=== PATIENT | female | born 1960 | race Caucasian/White ===

== ENCOUNTER 2025-06-17 13:45 | Outpatient (AMB) | payer MEDICARE, MEDICAID, SELFPAY ==
--- OUTSIDE RECORDS SUMMARY | 2022-11-17 07:00 | XMS_ITS | Continuity of Care Document ---
Author Organization [facility] Address [address] [place] [address] Phone Care Team Providers Care Roll Builder Name Role Phone No Information Unavailable Unavailable Allergies, Adverse Reactions, Alerts Substance Reaction Status Criticality No Known Allergies Active No Inform ation Medications Medication Instructions Dosage Effective Dates (start - stop) Status Comments Golytely 236 gram-22.74 gram-6.74 gram-5.86 gram oral solution Take as directed. - Active hydrocortisone 2.5 % topical cream with perineal applicator apply by topical route 2- 4 times every day a thin layer to the affected area(s) 0.00 - Active Golytely 236 gram-22.74 gram-6.74 gram-5.86 gram oral solution take as directed - Active lisinopril 40 mg tablet take 1 tablet by oral route every day 40 MG - Active Prilosec OTC 20 mg tablet,delayed release take 1 tablet by buccal route every day for 90 days 1 tablet - Active rosuvastatin 10 mg tablet take 1 tablet by oral route every day 10 MG - Active Procedures Procedure Date TISSUE EXAM BY PATHOLOGIST COLONOSCOPY AND BIOPSY UPPER GI ENDOSCOPY, BIOPSY OFFICE/OUTPATIENT VISIT, EST OFFICE/OUTPATIENT VISIT, NEW OFFICE/OUTPATIENT VISIT, NEW Advance Directives Directive Yes / No Effective Date File Name No Information Encounters Encounter Description Practice Location Reason(s) For Visit Diagnoses Date Provider Providers Copied on Encounter [facility], [address] [place], [address] [place] [address], tel:[phone] [facility] No Information Apr-2 3 No Information [facility], [address], [place], [place], [address] [place] [address], tel:[phone] Main Office Neoplasm of unsp behavior of bone, soft tissue, and skin Apr-2 3 Matteo Andrews. [address], [facility], . tel:[phone] Referring Provider: Milind Hurtado, [address], [place], [facility]. tel:[phone] [facility], [address] [place], [place], [address] [place] [address], tel:[phone] [facility] Benign neoplasm of cecumDvrtclos of lg int w/o perforation or abscess w/o bleedingBenig n neoplasm of sigmoid colonFirst degree hemorrhoidsGe neralized abdominal painEncounter for screening for malignant neoplasm of colonGastriti s, unspecified, without bleedingRight upper quadrant abdominal tendernessGas tro-esophagea l reflux disease with esophagitis, without bleeding Apr-2 3 [place]to [place]az. [address] [place] [facility], . tel:[phone] Referring Provider: Milind Hurtado, [address], [place], [facility]. tel:[phone] [facility], [address] [place], [place], [address] [place] [address], tel:[phone] Main Office No Information Apr-0 3 Gilberto Vaz. [address], [place], [facility], [place]. tel:[phone] OFFICE/OUTPA TIENT VISIT, EST [facility], [address], [place], [address] [place] [address], tel:[phone] Main Office Colon cancer screening (chief complaint)A bdominal pain (chief complaint) Gastro-esopha geal reflux disease without esophagitisEn counter for screening for malignant neoplasm of colonEpigastr ic painLeft upper quadrant painUnspecifi ed hemorrhoids Apr-0 4-202 3 Roseanna Drake. [address] [place], [facility], . tel:[phone] Referring Provider: Reynaldo Sotelo, [address], [place], [facility]. tel:[phone] [facility], [address], [address] [place] [address], tel:[phone] Main Office No Information 2 Juan Schmidhakar. [address], [place], [facility] [place], [place]. tel:[phone] OFFICE/OUTPA TIENT VISIT, [facility], [address] [place] [address], [address] [place] [address], tel:[phone] [place] GERD (chief complaint)C olon cancer screening (chief complaint) Gastro-esopha geal reflux disease without esophagitisEn counter for screening for malignant neoplasm of colonDysphagi a, unspecified 2 Gilberto Vaz. [address] , [place], [facility], . tel:[phone] Referring Provider: Chris Abdi, [address] [place] [address] In [facility], [place], [facility]. tel:[phone] OFFICE/OUTPA TIENT VISIT, [facility], [address], [address] [place] [address], tel:[phone] [facility] Colon cancer screening (chief complaint)p erianal irritation (chief complaint)D yspepsia (chief complaint) Special screening for malignant neoplasms, colonDyspepsi a 4 Gilberto Vaz. [address] [place], [facility], . tel:[phone] Family History Family Member Type Diagnosis Age At Onset Problem Family history o f malignant neoplasm of breast in first degree relative Payers Payer name Insurance type Covered constitution party ID Authorsusana garrett(s) [employer] Plans [id number] Social History Type Description Quantity Date Captured Comments Sex Female Smoking Status No Information Chief Complaint And Reason For Visit No Information Reason For Referral Reason For Referral No Information History Of Present Illness Encounter Date Complaint History Of Prese nt Illness Abdominal pain Comments: Report s h/o severe scoliosis with subsequent left flank pain radiating to the LUQ/Epigastric area. Requesting Abd US to check her organs. Also reports occ reflux; takes H2 berna PRN. Colon cancer screening Pertinent negatives include abdominal pain and weight loss. Comments: Last c olonoscopy with Dr. Austin. Received notice last year stating she was due for surveillance. Does report anorectal discomfort; attributes symptoms to hemorrhoids and anal fissures. OTC hemorrhoidal creams significantly help. GERD Additional infor mation: Has been on PPI for reflux for years. Has breakthrough symptoms at night despite PPI. Will have regurgitation and aspirate. Also has post-nasal drip, coughing fits. Takes ACEi. Colon cancer screening Additiona l information: Last COL was w Dr. Austin and she recently received notice she was due for routine COL. Functional Status Date Functional Assessmen t No Information Instructions Date Instruction Additional Infor mation No Information Assessments Type Assessment Date No Information Patient Care Teams Name Effective Dates (start - stop) Status Members No Information
--- OUTSIDE RECORDS SUMMARY | 2025-06-12 23:59 | XMS_ITS | Continuity of Care Document ---
Author Organization [facility] [place] Address [address] [place] [address]- Care Team Providers Care Host And Hostess Name Role Phone Fine FURNIT[employer] PACKER, Dustin Varghese Primary Care Physician ( [phone] Encounter [facility] Date(s): 05/13/25 - 06/12/25 [facility] [address] [place] [address]- Encounter Type: Triage Allergies, Adverse Reactions, Alerts Substance Criticality Severity Reaction Reaction Severity Status Adhesive Bandage Act blade Immunizations Given and Recorded Vaccine Date Status Refusal Reason [id number] bivalent booster vax 05/20/22 Recorded influenza virus vaccine, inactivated 05/03/22 Fazal rded influenza virus vaccine, inactivated 04/14/18 Fazal rded Medications Biotin See Instructions, By Mouth Daily, 0 Refills, Maintenance, 05/14/25 1:04:00 PM EDT, Partial fill upon patient request if the prescription is for a schedule II opioid drug. Start Date: 05/14/25 Status: Ordered Medication Dispense Status: Completed Total Allowed Fills: 1 Fills Dispensed: 0 DilTIAZem (Eqv-Tiazac) 120 mg/24 hours oral capsule, extended release 1 capsule = 120 mg, By Mouth, Daily, # 90 capsule, 3 Refills, Maintenance, 05/14/25 1:20:00 PM EDT,[facility] # [facility], Partial fill upon patient request if the prescription is for a schedule II opioid drug., 175, cm, 05/14/25 13:05:00 EDT, Height, 100.7, kg, 01/04/25 22:42:00 EDT, Dry Weight Start Date: 05/14/25 Status: Ordered Medication Dispense Status: Completed Quantity: 90.0 Unit: capsule Total Allowed Fills: 4 Fills Dispensed: 0 famotidine 20 mg oral tablet 1, tablet, By Mouth, 2 times a day, # 60 tablet, Refills 5, Maintenance, 03/14/25 1:11:00 PM EDT, Route to Pharmacy Electronically, [facility], 175, cm, 01/14/25 14:21:00 EDT, Height, 100.7, kg, 01/04/25 22:42:00 EDT, Dry Weight Start Date: 03/14/25 Status: Ordered Medication Dispense Status: Completed Quantity: 60.0 Unit: tablet Total Allowed Fills: 1 Fills Dispensed: 0 losartan 25 mg oral tablet 25 mg, 1, tablet, By Mouth, Daily, # 90 tablet, Refills 3, Tot. Refills 3, Maintenance, 04/23/25 12:39:00 PM EDT, Route to Pharmacy Electronically, [facility], Partial fill upon patient request if the prescription is for a schedule II opioid drug., 175, cm, 04/23/25 12:20:00 EDT, Height, 100.7, kg, 01/04/25 22:42:00 EDT, Dry Weight Start Date: 04/23/25 Stop Date: 04/18/26 Status: Ordered Medication Dispense Status: Completed Quantity: 90.0 Unit: tablet Total Allowed Fills: 4 Fills Dispensed: 0 Medication History OTC Vit D3 and K2 once daily 5,000IU, 0 Refills, Maintenance Start Date: 06/15/24 Status: Ordered Medication Dispense Status: Completed Total Allowed Fills: 1 Fills Dispensed: 0 Probiotic Formula By Mouth, Daily, 0 Refills, Maintenance, 05/14/25 1:05:00 PM EDT, Partial fill upon patient requestif the prescription is for a schedule II opioid drug. Start Date: 05/14/25 Status: Ordered Medication Dispense Status: Completed Total Allowed Fills: 1 Fills Dispensed: 0 rosuvastatin 20 mg oral tablet 1 tablet = 20 mg, By Mouth, Daily, # 90 tablet, 3 Refills, Maintenance, 05/14/25 1:20:00 PM EDT, [facility], 175, cm, 05/14/25 13:05:00 EDT, Height, 100.7, kg, 01/04/25 22:42:00 EDT, Dry Weight Start Date: 05/14/25 Status: Ordered Medication Dispense Status: Completed Quantity: 90.0 Unit: tablet Total Allowed Fills: 4 Fills Dispensed: 0 Soma 350 mg oral tablet 350 mg, 1, tablet, By Mouth, 4 times a day, PRN, Refills 0, Maintenance, Pain , Moderate, 04/11/24 3:55:00 PM EDT, Partial fill upon patient request if the prescription is for a schedule II opioid drug. Start Date: 04/11/24 Status: Ordered Medication Dispense Status: Completed Total Allowed Fills: 1 Fills Dispensed: 0 Zepbound 2.5 mg/0.5 mL subcutaneous solution = 2.5 mg, Subcutaneous Injection, Every week, rotate injection sites, # 4 each, 1 Refills, Maintenance, 04/23/25 12:39:00 PM EDT, Solution, [facility], Partial fill upon patient request if the prescription is for a schedule II opioid drug., 175, cm, 04/23/25 12:20:00 EDT, Height, 100.7, kg,01/04/25 22:42:00 EDT, Dry Weight Start Date: 04/23/25 Status: Ordered Medication Dispense Status: Completed Quantity: 4.0 Unit: each Total Allowed Fills: 2 Fills Dispensed: 0 Zepbound 2.5 mg/0.5 mL subcutaneous solution = 2.5 mg, Subcutaneous Injection, Every week, rotate injection sites, # 4 each, 1 Refills, Maintenance, 04/23/25 12:41:00 PM EDT, Solution, [facility] # [facility], Partial fill upon patient request if the prescription is for a schedule II opioid drug., 175, cm, 04/23/25 12:20:00 EDT, Height, 100.7, kg,01/04/25 22:42:00 EDT, Dry Weight Start Date: 04/23/25 Stop Date: 06/18/25 Status: Ordered Medication Dispense Status: Completed Quantity: 4.0 Unit: each Total Allowed Fills: 2 Fills Dispensed: 0 Zepbound 5 mg/0.5 mL subcutaneous solution = 5 mg, Subcutaneous Injection, Every week, rotate injection sites, # 2 mL, 1 Refills, Maintenance,06/04/25 4:37:00 PM EST, Solution, [facility], Partial fill upon patient request if the prescription is for a schedule II opioid drug., 175, cm, 06/04/25 14:42:00 EST, Height, 100.7, kg, 01/04/25 22:42:00 EDT, Dry Weight Start Date: 06/04/25 Stop Date: 08/03/25 Status: Ordered Medication Dispense Status: Completed Quantity: 2.0 Unit: mL Total Allowed Fills: 2 Fills Dispensed: 0 Indications: Obesity, unspecified; Problem List Condition Confirmation Course Effective Dates Status Health St atus Informant Obese class I Confirmed Active Obstructive sleep apnea Confirmed Active Social History Social History Type Response Smoking Status Never (less than 100 in lifetime); Interested in cessation: No; Patient wants NRT during admission No;Never; Exposure to Secondhand Smoke: Yes; Previous treatment: None; Tobacco user in household: No entered on: 03/17/23 Sexual Orientation Self described orien tation: ; Straight or heterosexual Sex Sex Representation Female (finding) Patient Care team information Care Team Personnel Name: Dustin Goodman NP Position: [facility] Associate Professional Member Role: PCP Address: [address] [place] [address] [address] Telecom: Care Team Related Persons Name: HERNESTO FARLEY Name: THA ARELLANO Insurance Providers Guarantor name: GERARD EILEEN Health Plan Information #: 1 Payer: I32 MEDICARE REPLACEMENT Payer Identifier: AURA Member Number: [id number] Group Number: [id number] Subscriber Identifier: AURA Relationship to Subscriber: self Coverage Type: Medicare Managed Care (Includes Medicare Advantage Plans) Coverage Verification Date: AURA Telecom: NA Address: NA
--- NOTE | 2025-06-17 14:15 | MHC.OFFVIS ---
Vital Signs 06/17/25 14:19 Height 5 ft 9 in Weight 214 lb BMI 31.6 Intake Visit Reasons: Paronychia, Rt great toe, acute ingrown toenail Intake Note: Ignacia is a 64 year old female who presents today as a new patient for an evaluation of her right hallux ingrown. Patient reports her toe has worsened over the past 2 months and the ingrown is located on the medial aspect. She has tried epsom salt soaks daily and her PCP has prescribed her Keflex and she has found slight relief for her symptoms. Allergies No Known Allergies Allergy (Verified 06/17/25 14:16) HPI Comments Details: The patient is a 64-year-old female with a PMH as seen below presenting with concerns regarding an ingrown toenail and onychomycosis. The ingrown toenail to the right hallux medial border began approximately two months ago when the patient trimmed the nail using sharp, curved tools, which led to soreness. The patient wears wide orthopedic shoes but still experiences discomfort due to the pressure to the hallux. She denies any purulence, but states she took Keflex previously and completed the course. She also states she noticed increased thickness and discoloration to the left hallucal nail. She denies any other pedal concerns. Patient was accompanied by her . [facility] Medical History (Updated 06/17/25 @ 14:26 by Shelbie Toure DPM) Pain of right great toe Ingrowing nail Nail dystrophy Nail disorder Tinea unguium Review of Systems Const Details: - Musculoskeletal: Reports pain to the right hallux in the area of the ingrown toenail. - Integumentary: Reports ingrown toenail to right hallux medial border and increased thickness and discoloration to the left hallucal nail. All systems reviewed & are unremarkable except as noted in HPI and below Physical Exam Vital Signs: BMI result Body Mass Index 31.6 Extrem Other: B/L LE Focused Physical Exam: Derm: Increased incurvation noted to the medial border of the right hallucal nail consistent with an ingrown toenail with mild edema. Increased thickness, slightly elongated, and discoloration noted to the left hallucal nail. Remaining Toenails WNL. No purulence, drainage, or bleeding noted. No open lesions, abrasions, or wounds noted. No clinical signs of infection noted. Vasc: DP/PT pulses palpable. CFT < 3 secs. Temp gradient warm to warm. Pedal hair absent. No varicosities noted. Neuro: Protective sensations grossly intact. MSK: Pain on palpation to the right hallux medial nail border. No crepitus or fluctuance noted. ROM of the forefoot, ankle, and hindfoot WNL. Nonantalgic gait unassisted noted. No other gross abnormalities noted. Office Procedures AMB Debridement/Avulsion Podia Details: Debrided the left hallucal nail using a sterile nail nipper without incidents. Procedure:Right hallux partial nail avulsion of the medial border Cleansed right hallux with alcohol swab and injected 10cc of 2%lidocaine plain in a hallux block fashion. Next applied a tourniquet to the right hallux and then cleansed the right hallux with Betadine. Attention was drawn to the medial border of the right hallux and a [place] was utilized to free the offending nail border from the nail bed. Next an [place] anvil was utilized to trim and cut the offending nail border and a hemostat was used to remove the offending nail border completely. A curette was used to ensure all spicules of the nail were removed from the nail bed. Triple antibiotic ointment, 2x2 gauze,and [place] was then applied to the right hallux. Procedure was done with no incidents. Provided patient with aftercare instructions. [id number]-[place] of Nail <6 70071 Partial/Total nail avulsion (1 nail) Procedure code (CPT) selection complete Office Meds lidocaine HCl 10 mg/mL (1 %) injection solution Performing Provider: Shelbie Toure DPM Performing Location: [facility] [place] [facility] Administered by: Shelbie Toure DPM on 06/20/25 21:03 Dose Route Admin Location Dispensed Lot Number Expiration Date [facility] [employer] 10 mL subcut 10 mL [id number] Total Dispensed Waste 10 mL 0 % Comments: 2% lidocaine plain used. Triple Antibiotic 3.5 mg-400 unit-5,000 unit topical ointment packet Performing Provider: Shelbie Toure DPM Performing Location: [facility] [place] Administered by: Shelbie Toure DPM on 06/20/25 21:03 Dose Route Admin Location Dispensed Lot Number Expiration Date [facility] [employer] 1 appl topical 1 appl [id number] PADAG[employer] povidone-iodine 10 % topical swab Performing Provider: Shelbie Toure DPM Performing Location: [facility] [place] Administered by: Shelbie Toure DPM on 06/20/25 21:03 Dose Route Admin Location Dispensed Lot Number Expiration Date [facility] [employer] 1 appl topical 1 appl [id number] [employer] [place]. ethyl chloride 100 % topical spray Performing Provider: Shelbie Toure DPM Performing Location: [facility] [place] Administered by: Shelbie Toure DPM on 06/20/25 21:03 Dose Route Admin Location Dispensed Lot Number Expiration Date [facility] [employer] 1 appl topical 116 mL [id number] 365 [employer]ob[employer]. Assessment & Plan Assessment & Plan (1) Pain of right great toe: Code(s): M79.674 - Pain in right toe(s) Category: Medical (2) Ingrowing nail: Code(s): L60.0 - Ingrowing nail Category: Medical (3) Nail dystrophy: Code(s): L60.3 - Nail dystrophy Category: Medical (4) Nail disorder: Code(s): L60.9 - Nail disorder, unspecified Category: Medical (5) Tinea unguium: Code(s): B35.1 - Tinea unguium Category: Medical Plan Patient was informed and verbally consented to the use of an ambient scribe for clinic note documentation during this visit. I discussed with the patient the management of onychomycosis using Ciclopirox, explaining that it requires regular application and filing to be effective. We also talked about the procedure to address the ingrown toenail. I provided instructions on post-procedure care, emphasizing the importance of soaking the toe and applying Neosporin to aid healing. - Prescribed Ciclopirox topical treatment for onychomycosis, to be applied regularly with filing in between applications to enhance penetration. - Performed a PNA to the right hallux medial border. Provided patient with after care instructions. - Advised post-procedure care including soaking in Epsom salt and warm water, application of Neosporin, and use of a Band-Aid. - Advised patient to wear shoes with a wide toe box. - Advised patient to avoid barefoot walking and to wear supportive shoe gear. RTC in 2 weeks. Orders: Orders AMB Debridement/Avulsion Podiatry 06/17/25 L60.0 - Ingrowing nail, M79.674 - Pain in right toe(s) Medications: New ciclopirox 8% 1 appl topical BEDTIME 6.6 mL 1RF 4 weeks B35.1 - Tinea unguium, L60.3 - Nail dystrophy, L60.9 - Nail disorder, unspecified Coding Level of Care Code New Pt Level 4 (14476) Diagnoses Pain of right great toe M79.674 Ingrowing nail L60.0 Nail dystrophy L60.3 Nail disorder L60.9 Tinea unguium B35.1 CPT Codes Skin Debridement - CPT: 53834-[place] of Nail <6 ([id number]) Skin Debridement - CPT: 16066 Partial/Total nail avulsion (1 nail) ([id number]) Time Spent (min) 65 Comment 20 mins for procedure
[2025-06-17 14:19] VITALS: BMI 31.6
== END 2025-06-17 15:11 | disposition home or self-care (01) ==
LOC: HO.HPODS 13:46
PROVIDERS: PCP Nurse Practitioner Family; Visit Provider Student in an Organized Health Care Education/Training Program
DX: M79.674 Pain in right toe(s) (principal); L60.0 Ingrowing nail; L60.3 Nail dystrophy; L60.9 Nail disorder, unspecified; B35.1 Tinea unguium
CPT/HCPCS: 11730; 99204

== ENCOUNTER → 2025-06-17 13:45 | Outpatient (BNVA) | payer MEDICARE, MEDICAID, SELFPAY | PROVIDERS: PCP Nurse Practitioner Family; Visit Provider Student in an Organized Health Care Education/Training Program | DX: L60.0 Ingrowing nail (principal); L60.3 Nail dystrophy; L60.9 Nail disorder, unspecified; B35.1 Tinea unguium | CPT/HCPCS: 11730; 99202; J2003 ==

== ENCOUNTER → 2025-07-01 14:25 | Outpatient (BNVA) | payer MEDICARE, MEDICAID, SELFPAY | PROVIDERS: PCP Nurse Practitioner Family; Visit Provider Student in an Organized Health Care Education/Training Program | DX: L30.9 Dermatitis, unspecified (principal); M79.674 Pain in right toe(s); L60.0 Ingrowing nail; L60.3 Nail dystrophy; L60.9 Nail disorder, unspecified; B35.1 Tinea unguium | CPT/HCPCS: 99212 ==

== ENCOUNTER → 2025-07-01 14:25 | Outpatient (AMB) | payer MEDICARE, MEDICAID, SELFPAY ==
--- OUTSIDE RECORDS SUMMARY | 2022-11-17 07:00 | XMS_ITS | Continuity of Care Document ---
Author Organization [facility] Address [address] [place] [address] Phone Care Team Providers Care Relay Mechanic Name Role Phone No Information Unavailable Unavailable [...] Encounter [facility], [address] [place], [address] [place] [address], tel:[phone] [facility] No Information Apr-2 3 No Information [facility], [address], [place], [address] [place] [address], tel:[phone] Main Office Neoplasm of unsp behavior of bone, soft tissue, and skin Apr-2 3 Matteo Andrews. [address], [place], [facility], . tel:[phone] Referring Provider: Milind Hurtado, [address], [place], [facility]. tel:[phone] [facility], [address] [place], [place], [address] [place] [address], tel:[phone] [facility] Benign neoplasm of cecumDvrtclos of lg int w/o perforation or abscess w/o bleedingBenig n neoplasm of sigmoid colonFirst degree hemorrhoidsGe neralized abdominal painEncounter for screening for malignant neoplasm of colonGastriti s, unspecified, without bleedingRight upper quadrant abdominal tendernessGas tro-esophagea l reflux disease with esophagitis, without bleeding Apr-2 3 Gilberto Vaz. [address] [place], [facility], . tel:[phone] Referring Provider: Milind Hurtado, [address], [place], [facility]. tel:[phone] [facility], [address] [place], [place], [address] [place] [address], tel:[phone] Main Office No Information Apr-0 3 Gilberto Vaz. [address], [place], [facility], [place]. tel:[phone] OFFICE/OUTPA TIENT VISIT, EST [facility], [address], [place], [address] [place] [address], tel:[phone] Main Office Colon cancer screening (chief complaint)A bdominal pain (chief complaint) Gastro-esopha geal reflux disease without esophagitisEn counter for screening for malignant neoplasm of colonEpigastr ic painLeft upper quadrant painUnspecifi ed hemorrhoids Apr-0 4-202 3 Roseanna Drake. [address] [place], [facility], . tel:[phone] Referring Provider: Reynaldo Sotelo, [address], [place], [facility]. tel:[phone] [facility], [address], [address] [place] [address], tel:[phone] Main Office No Information 2 Juan Schmidhakar. [address], [place], [facility], [place]. tel:[phone] OFFICE/OUTPA TIENT VISIT, [facility], [address] [place] [address], [address] [place] [address], tel:[phone] [place] [facility] GERD (chief complaint)C olon cancer screening (chief complaint) Gastro-esopha geal reflux disease without esophagitisEn counter for screening for malignant neoplasm of colonDysphagi a, unspecified 2 Gilberto Vaz. [address] , [place], [facility], . tel:[phone] Referring Provider: Chris Abdi, [address] [place] [address] In [facility], [place], [facility]. tel:[phone] OFFICE/OUTPA TIENT VISIT, [facility], [address], [address] [place] [address], tel:[phone] [place] [facility] Colon cancer screening (chief complaint)p erianal irritation (chief complaint)D yspepsia (chief complaint) Special screening for malignant neoplasms, colonDyspepsi a 4 Gilberto Vaz. [address] [place], [place], [facility], . tel:[phone] Family History Family Member Type Diagnosis Age At Onset Problem Family history o f malignant neoplasm of breast in first degree relative Payers Payer name Insurance type Covered republican ID Authorsusana garrett(s) [employer] Plans [id number] Social History Type Description Quantity Date Captured [...]
[2025-07-01 14:28] VITALS: BMI 31.6
--- NOTE | 2025-07-01 14:28 | A.OFFVIS_ITS ---
Vital Signs 07/01/25 14:28 Height 5 ft 9 in Weight 214 lb BMI 31.6 Intake Visit Reasons: f/u right hallux PNA and left hallux fungal nail Intake Note: Ignacia is a 64 year old female who presents to the office today for a follow up of her right hallux PNA and left hallux fungal nail. At last visit Ciclopirox was prescribed and pt was instructed to soak her foot in Epsom salt and warm water and apply Neosporin for healing. Pt states she is doing wel, however she has not started the topical treatment on her left foot, with no further concerns. Allergies No Known Allergies Allergy (Verified 07/01/25 14:33) HPI Comments Details: The patient is a 64 year old female presenting for a follow-up status post right hallux partial nail avulsion and for left hallux fungal nail. She reports her right hallux feels good without any pain, and she denies any pus or bleeding post-procedure. She was compliant with post-procedure care, including Epsom salt soaks and applying Neosporin with a Band-Aid for about 4-5 days. The patient also has a history of onychomycosis, for which a ciclopirox was prescribed. She reports she has not yet started the treatment. Additionally, the patient notes a new erythematous spot on the dorsum of the right hallux at the previous inje ction site. She denies current pruritus at the site, although she is unsure if it may have been pruritic previously. She denies any new pedal injuries. She denies any other pedal concerns. [facility] Medical History (Updated 07/01/25 @ 14:46 by Shelbie Toure DPM) Dermatitis Pain of right great toe Ingrowing nail Nail dystrophy Nail disorder Tinea unguium Review of Systems Const Details: - Integumentary: Reports an erythematous lesion on the dorsum of the right foot. Reports healed right hallux PNA site. Reports discolored and slightly thickened left hallucal nail. All systems reviewed & are unremarkable except as noted in HPI and below Physical Exam Exam Exam: Physical Exam - Podiatric: Examination of the affected toe reveals no tenderness to palpation or squeezing. - The site is well-healed with no evidence of purulence or hemorrhage. - Integumentary: An erythematous macule is noted on the skin, possibly corresponding to a prior injection site. - The lesion is non-tender to palpation. Vital Signs: BMI result Body Mass Index 31.6 Extrem Other: B/L LE Focused Physical Exam: Derm: Healed partial nail avulsion site to the right hallux medial border with no edema. Increased thickness, slightly elongated, and discoloration noted to the left hallucal nail. Remaining Toenails WNL. No purulence, drainage, or bleeding noted. No open lesions, abrasions, or wounds noted. No clinical signs of infection noted. Vasc: DP/PT pulses palpable. CFT < 3 secs. Temp gradient warm to warm. Pedal hair absent. No varicosities noted. Neuro: Protective sensations grossly intact. MSK: No Pain on palpation to the right hallux medial nail border. No crepitus or fluctuance noted. ROM of the forefoot, ankle, and hindfoot WNL. Nonantalgic gait unassisted noted. No other gross abnormalities noted. Assessment & Plan Assessment & Plan (1) Dermatitis: Code(s): L30.9 - Dermatitis, unspecified Category: Medical (2) Pain of right great toe: Code(s): M79.674 - Pain in right toe(s) Category: Medical (3) Ingrowing nail: Code(s): L60.0 - Ingrowing nail Category: Medical (4) Nail dystrophy: Code(s): L60.3 - Nail dystrophy Category: Medical (5) Nail disorder: Code(s): L60.9 - Nail disorder, unspecified Category: Medical (6) Tinea unguium: Code(s): B35.1 - Tinea unguium Category: Medical Plan Patient was informed and verbally consented to the use of an ambient scribe for clinic note documentation during this visit. I examined the patient's right hallux partial nail avulsion site which is noted to be healed. I advised her to discontinue soaks and bandaging, but she may apply a Band-Aid to the right hallux if she is wearing shoes that are tighter. I explained that the nail will take about a year to grow out completely and instructed her to file the edges to prevent recurrence. We discussed the erythematous spot on her skin, which I assessed as dermatitis, likely a local reaction. I am prescribing betamethasone cream and advised her to call if it becomes pruritic or if there are any other adverse effects. I encouraged her to begin using ciclopirox for onychomycosis, explaining that the healthy nail will grow in and push out the discolored portion. - For the healed right hallux partial nail avulsion site, the patient was advised to discontinue Epsom salt soaks, Neosporin, and Band-Aid application as it has healed well. - The patient was educated that complete regrowth of the new nail will take approximately one year. - The patient was instructed to gently file the edges of the nail as it grows to prevent it from becoming ingrown again. - The patient was encouraged to start applying ciclopirox to the left hallucal nail. - A prescription for betamethasone cream was sent for the dermatitis noted to the right foot. RTC PRN. Medications: New betamethasone dipropionate 0.05% 1 appl topical DAILY PRN 15 grams 0RF skin irritation L30.9 - Dermatitis, unspecified Refilled ciclopirox 8% 1 appl topical BEDTIME 6.6 mL 1RF 4 weeks B35.1 - Tinea unguium, L60.3 - Nail dystrophy, L60.9 - Nail disorder, unspecified Coding Level of Care Code Est Pt Level 3 (58790) Diagnoses Dermatitis L30.9 Pain of right great toe M79.674 Ingrowing nail L60.0 Nail dystrophy L60.3 Nail disorder L60.9 Tinea unguium B35.1 Time Spent (min) 21
== END ==
LOC: HO.HPODS 14:25
PROVIDERS: PCP Nurse Practitioner Family; Visit Provider Student in an Organized Health Care Education/Training Program
DX: L30.9 Dermatitis, unspecified (principal); M79.674 Pain in right toe(s); L60.0 Ingrowing nail; L60.3 Nail dystrophy; L60.9 Nail disorder, unspecified; B35.1 Tinea unguium
CPT/HCPCS: 99213